=== PATIENT | male | born 1985 | race Caucasian/White ===

== ENCOUNTER → 2021-07-27 | Outpatient (CLI) | payer BC ==
[~2021-07-27] MED LIST: ALLEGRA180 MG PO; AMOXICILLIN500 MG PO; ANAPROX DS550 MG PO; BACTRIM DS 8001 TA1 PO; CLARITIN10 MG PO; FLAGYL500 MG PO; FLEXERIL5 MG PO; FLOMAX0.4 MG PO; HYDROCODONE BIT1 T11 PO; KEFLEX500 MG PO; KENALOG0.1% TP; LIDEX0.05% T; MEDROL DOSEPAK4 MG PO; MOTRIN800 MG PO; Motrin,Rufen800 MG PO; PERCOCET 325 MG1 TA2 PO; PREDNICOT10 MG PO; SUDAFED60 MG PO; VICODIN 5/500 505 MG PO; VICODIN 500 MG-1 TAB PO; ZESTRIL30 M3 PO; ZOFRAN ODT4 MG SL; ZOFRAN4 MG PO; Zofran4 MG PO
== END | disposition home or self-care (01) ==
LOC: US 09:06
PROVIDERS: ATTEND Nurse Practitioner Family
DX: N50.812 Left testicular pain (principal)

== ENCOUNTER 2022-10-13 15:45 | Emergency (ER) | payer BC ==
[~2022-10-13] VITALS: Ht 175.2 cm; Wt 90.7 kg
[2022-10-13] MEDS ORDERED: Xylocaine 2% Jel5 ML T (16:03)
== END 2022-10-13 16:16 | disposition home or self-care (01) ==
LOC: ED 15:45
DX: K08.89 Other specified disorders of teeth and supporting structures (principal)

== ENCOUNTER 2023-09-11 08:57 | Emergency (ER) | payer BC ==
[~2023-09-11] VITALS: Ht 175.2 cm; Wt 81.6 kg
[~2023-09-11 08:57] MED LIST changes: +Xylocaine 2% Jel5 ML T
[2023-09-11] MEDS ORDERED: SUMATRIPTAN SUC50 M1 PO (09:19)
[2023-09-11 10:12] LABS: BASO % 0.7 % (0.0-1.0); EOS # 0.2 10*3/uL (0.0-0.4); EOS % 2.7 % (1.0-4.0); HEMATOCRIT 47.7 % (42.0-52.0); LYMPH # 1.3 10*3/uL (1.3-4.4); LYMPH % 22.5 % (27.0-41.0); MEAN CELL VOLUME 85.5 fl (80.0-94.0); MEAN CORPUSCULAR HGB 28.7 pg (27.0-31.0); MEAN CORPUSCULAR HGB CONC 33.5 g/dl (33.0-37.0); MEAN PLATELET VOLUME 10.6 fl (9.6-12.3); MONO # 0.4 10*3/uL (0.1-1.0); MONO % 7.6 % (3.0-9.0); NEUT # 3.7 10*3/uL (2.3-7.9); NEUT % 66.1 % (47.0-73.0); PLATELET COUNT AUTOMATED 237 10*3/uL (130-400); RED BLOOD COUNT 5.58 10*6/uL (4.50-5.90); RED CELL DISTRI WIDTH 12.6 % (0-14.5); WHITE BLOOD COUNT 5.7 10*3/uL (4.8-10.8)
[2023-09-11 10:33] LABS: ALKALINE PHOSPHATASE 60 U/L (46-116); BUN 13 mg/dl (9-23); CHLORIDE 104 mmol/L (98-107); LIPASE 33 U/L (12-53); POTASSIUM 4.3 mmol/L (3.4-5.1); SGPT/ALT 19 U/L (5-49); TOTAL PROTEIN 7.9 gm/dL (6.0-8.0)
[2023-09-11 10:37] LABS: BILIRUBIN Negative (Negative); BLOOD Trace-Lysed (Negative); CLARITY Clear (Clear); COLOR Yellow (Yellow); GLUCOSE Negative (Negative); KETONE Negative (Negative); LEUKO ESTERASE Negative (Negative); NITRITE Negative (Negative); UROBILINOGEN 0.2 E.U./dl (0.0-1.0)
[2023-09-11 10:46] LABS: EPITHELIAL CELLS 0-2
[2023-09-11] MEDS ORDERED: ONDANSETRON4 MG SL (11:24)
[2023-09-11] MEDS ORDERED: HYDROCODONE-AC1 EAC1 PO (11:24)
[2023-09-11] MEDS ORDERED: FLOMAX0.4 MG PO (11:24)
== END 2023-09-11 11:34 | disposition home or self-care (01) ==
LOC: ED 08:57
PROVIDERS: Family Medicine
DX: N20.0 Calculus of kidney (principal); J45.909 Unspecified asthma, uncomplicated

== ENCOUNTER 2024-01-16 19:47 | Emergency (ER) | payer BC ==
[~2024-01-16] VITALS: Ht 175.2 cm; Wt 86.2 kg
[~2024-01-16 19:47] MED LIST changes: +HYDROCODONE-AC1 EAC1 PO; +ONDANSETRON4 MG SL; +SUMATRIPTAN SUC50 M1 PO
[2024-01-16] MEDS ORDERED: Ketorolac Tromethamine 60 MG/2 ML VIAL IM ONE (20:00)
[2024-01-16] MEDS ORDERED: MELOXICAM15 MG PO (20:52)
== END 2024-01-16 21:02 | disposition home or self-care (01) ==
LOC: ED 19:47
DX: M79.641 Pain in right hand (principal); J45.909 Unspecified asthma, uncomplicated; Z87.442 Personal history of urinary calculi

== ENCOUNTER 2024-10-05 08:10 | Emergency (ER) | payer BC ==
[~2024-10-05] VITALS: Ht 175.2 cm; Wt 78.0 kg
[~2024-10-05 08:10] MED LIST changes: +MELOXICAM15 MG PO
[2024-10-05] MEDS ORDERED: Ondansetron Hydrochloride 4 MG/2 ML VIAL IV ONE (08:35)
[2024-10-05 08:56] LABS: BASO # 0.1 10*3/uL (0.0-0.1); BASO % 0.9 % (0.0-1.0); EOS # 0.1 10*3/uL (0.0-0.4); EOS % 2.2 % (1.0-4.0); HEMATOCRIT 53.4 % (42.0-52.0); MEAN CELL VOLUME 84.4 fl (80.0-94.0); MEAN CORPUSCULAR HGB CONC 33.1 g/dl (33.0-37.0); MONO # 0.4 10*3/uL (0.1-1.0); MONO % 7.5 % (3.0-9.0); NEUT # 3.5 10*3/uL (2.3-7.9); NEUT % 64.2 % (47.0-73.0); PLATELET COUNT AUTOMATED 231 10*3/uL (130-400); RED BLOOD COUNT 6.33 10*6/uL (4.50-5.90); RED CELL DISTRI WIDTH 12.8 % (0-14.5); WHITE BLOOD COUNT 5.4 10*3/uL (4.8-10.8)
[2024-10-05] MEDS ORDERED: Ketorolac Tromethamine 30 MG/ML VIAL IV ONE (09:15)
[2024-10-05 09:18] LABS: ALKALINE PHOSPHATASE 72 U/L (46-116); BUN 14 mg/dl (9-23); CHLORIDE 100 mmol/L (98-107); LIPASE 37 U/L (12-53); POTASSIUM 3.6 mmol/L (3.4-5.1); SGPT/ALT 14 U/L (5-49); TOTAL PROTEIN 8.1 gm/dL (6.0-8.0)
[2024-10-05 09:31] LABS: BILIRUBIN Negative (Negative); BLOOD 2+ (Negative); CLARITY Clear (Clear); COLOR Yellow (Yellow); GLUCOSE Negative (Negative); KETONE Negative (Negative); LEUKO ESTERASE Negative (Negative); NITRITE Negative (Negative); PH 5.5 (4.5-8.0)
[2024-10-05] MEDS ORDERED: Ondansetron4 MG SL (10:04)
[2024-10-05] MEDS ORDERED: NAPROSYN500 MG PO (10:04)
[2024-10-05 10:10] LABS: BACTERIA 1+; RBC 16-20 rbc/hpf (0-2)
== END 2024-10-05 09:57 | disposition home or self-care (01) ==
LOC: ED 08:10
PROVIDERS: Internal Medicine
DX: N20.0 Calculus of kidney (principal); Z87.442 Personal history of urinary calculi; Z79.899 Other long term (current) drug therapy